=== PATIENT | female | born 1940 | race Caucasian/White ===

== ENCOUNTER 2016-09-30 15:59 | Inpatient (IN) | payer BC, MEDICARE ==
--- NOTE | ~2016-09-30 | HP ---
History And Physical [address] [place] [address] NAME: GRACIELA MEYERS : 44 STATUS : ADM Gerri PAT#: [id number] AGE: 76 ADM/REG DATE : 09/30/16 MR#: [id number] REPORT SERV DATE: 10/01/16 DICTATED BY: RELL FIELDS DATE: 09/30/16 REPORT STATUS : Draft TRANSCRIBED BY: MODL DATE: 09/30/16 DATE OF ADMISSION: 09/30/2016 POINT OF ENTRY: [facility] Emergency Department. CHIEF COMPLAINT: Shortness of breath and cough. HISTORY OF PRESENT ILLNESS: Ms. Meyers is a 76-year-old female with a history of COPD, not on home oxygen as well as hypertension and atrial fibrillation, not on anticoagulation, who presents to the emergency department today with acute onset of shortness of breath with nonproductive cough and wheezing. The patient states that for the past few days, she has had an upper respiratory tract infection with sinus congestion, drainage, as well as a sore throat, but she denies any fevers, night sweats, chills, cough, or shortness of breath. Upon awakening this morning, she noted a nonproductive cough, some wheezing, shortness of breath, and primarily her main complaint is dyspnea on exertion as she stated she was not able to even walk to the restroom without feeling significantly short of breath. She denies any chest pain, but does state that she does have some mild discomfort in between her shoulder blades, which does not feel "normal." Initial evaluation in the emergency department is notable for a chest x-ray that was clear. CT of the chest is negative. She was noted to be mildly hypoxemic on room air requiring 2 L by nasal cannula. Labs were otherwise unremarkable. EKG as well as troponin are negative. She was given steroids and bronchodilators with improvement in her symptoms, but still somewhat mildly hypoxemic. Therefore, she was admitted to the Hospitalist Service for further evaluation and management. COMPREHENSIVE SYSTEM OF REVIEW: Otherwise negative unless listed in the history of present illness. PREVIOUS MEDICAL HISTORY: 1. COPD, not on home oxygen. 2. Atrial fibrillation, not on anticoagulation. 3. Sick sinus syndrome, status post pacemaker insertion. 4. Hypertension. SURGICAL HISTORY: 1. Bilateral total knee. 2. Tubal ligation. ALLERGIES: NO KNOWN DRUG ALLERGIES. HOME MEDICATIONS: 1. Aspirin 81 mg daily. 2. Benazepril 40 mg b.i.d. History And Physical [address] [address] NAME: GRACIELA MEYERS : 44 STATUS : ADM Gerri PAT#: [id number] AGE: 76 ADM/REG DATE : 09/30/16 MR#: [id number] REPORT SERV DATE: 10/01/16 DICTATED BY: RELL FIELDS DATE: 09/30/16 REPORT STATUS : Draft TRANSCRIBED BY: JEANNIE DATE: 09/30/16 3. Ibuprofen 400 mg b.i.d. 4. Indapamide 1.25 mg daily. 5. Combivent inhaler five times p.r.n. 6. Magnesium oxide 400 mg b.i.d. 7. Potassium chloride 30 mEq daily. 8. Rythmol 225 mg b.i.d. SOCIAL HISTORY: Denies any tobacco, alcohol, or illicits. Actually only smoked for about two years when she was younger, but has extensive secondhand smoking exposure secondary to her . Denies alcohol. Denies illicits. FAMILY MEDICAL HISTORY: Mother with history of stroke. Father's history is unknown. Siblings with history of coronary artery disease and prostate cancer. LABS AND IMAGIN. White count 10.0, hemoglobin is 12.9, hematocrit is 38.5, platelet count is 194. INR 1.1. 2. Sodium is 141, potassium 3.4, chloride 108, carbon dioxide 29, BUN 12, creatinine 0.83, glucose is 105, calcium is 9.0, magnesium is 2.1. 3. BNP is 92.7, troponin less than 0.02. 4. ABG; pH is 7.41, pCO2 is 39, PO2 is 57, bicarb is 24, saturating 90% on room air. 5. Chest x-ray per my review shows no acute cardiopulmonary abnormality. Does show some mild hyperinflation. 6. CT of the chest is negative for PE or pneumonia. 7. EKG per my review shows normal sinus rhythm without evidence of any acute ischemia or infarction. PHYSICAL EXAMINATION: VITAL SIGNS: Temperature is afebrile, pulse 78, respirations 22, saturating 97% on 2 L by nasal cannula, blood pressure is 143/88. GENERAL: The patient is awake, alert, in no acute distress. Resting comfortably. She is a well-developed, well-nourished elderly female. HEENT: Atraumatic, normocephalic. Moist mucous membranes. Pupils were equal, round, reactive to light and accommodation. Extraocular eye movements are intact. No scleral icterus. NECK: No jugular venous distention. No carotid bruits. CARDIAC: Regular rate and rhythm. No murmurs, rubs, or gallops. Normal S1, S2. LUNGS: On oxygen, but in no respiratory distress. Does have some decreased breath sounds at the bases as well as prolonged inspiratory phase, but I do not appreciate any wheezes, rhonchi, or crackles at this time. ABDOMEN: Soft, nontender, nondistended. Good bowel sounds. No rebound, guarding, or rigidity. EXTREMITIES: Warm and well perfused. No cyanosis, clubbing, or edema. SKIN: Warm and dry. PSYCH: Affect appropriate. NEURO: Alert and oriented x3. Cranial nerves 2 through 12 grossly intact. Speech is normal. Gait not assessed. History And Physical [address] [address] NAME: GRACIELA MEYERS : 44 STATUS : ADM Gerri PAT#: [id number] AGE: 76 ADM/REG DATE : 09/30/16 MR#: [id number] REPORT SERV DATE: 10/01/16 DICTATED BY: RELL FIELDS DATE: 09/30/16 REPORT STATUS : Draft TRANSCRIBED BY: JEANNIE DATE: 09/30/16 ASSESSMENT AND PLAN: Ms. Meyers is a 76-year-old female with history of chronic obstructive pulmonary disease, who presents with a one-day history of shortness of breath, cough, and wheezing, found to have evidence of acute chronic obstructive pulmonary disease exacerbation. PROBLEM LIST: 1. Acute COPD exacerbation. 2. Mild hypoxemia. 3. Dyspnea on exertion. PLAN: 1. Acute COPD exacerbation. We will treat with bronchodilators, antibiotics, as well as steroids. 2. Mild hypoxemia likely secondary to acute COPD exacerbation. She does not have any evidence of volume overload and CT of the chest was negative for PE. We will continue to reevaluate as we treat her COPD. 3. Dyspnea on exertion likely secondary to acute COPD exacerbation. Chest x-ray is clear. There does not appear to be any evidence of pneumonia or volume overload. She recently had an echocardiogram as well as a stress test within the last 12 months that was unremarkable. Therefore, we will hold off on further reevaluation. 4. DVT prophylaxis. Lovenox subcu. CODE STATUS: The patient wished to be full code. JCB/MODL Rell Fields MD / [id number] CC: Rogelio Ceballos M.D.
--- NOTE | ~2016-09-30 | DS ---
Discharge Summary [address] [place]. [address] NAME: GRACIELA CASTRO : 44 STATUS : DIS Gerri PAT#: [id number] AGE: 76 ADM/REG DATE : 09/30/16 MR#: [id number] REPORT SERV DATE: 10/02/16 DICTATED BY: CHAGO MICHEL DATE: 10/02/16 REPORT STATUS : Draft TRANSCRIBED BY: MODL DATE: 10/02/16 ADMISSION DATE: 09/30/2016 DISCHARGE DATE: 10/02/2016 DIAGNOSES ON ADMISSION: 1. Acute chronic obstructive pulmonary disease exacerbation. 2. Mild hypoxemia. 3. Dyspnea. DIAGNOSES ON DISCHARGE: 1. Acute chronic obstructive pulmonary disease exacerbation, resolved. 2. Dyspnea on exertion, improved. 3. Mild hypoxemia, resolved. 4. Bronchitis/upper respiratory infection, improved. 5. History of short episode of atrial fibrillation, currently in normal sinus rhythm. 6. History of pacemaker placement in the past. 7. History of moderate chronic obstructive pulmonary disease per pulmonary function testing done in 2014. IMAGING STUDIES: 09/30/2016, CTA of the chest, no pulmonary emboli, atelectasis in the right middle lobe and at the lung bases, no significant lung infiltrates, no lung masses, no adenopathy. Echocardiography done on 10/01/2016 showed normal left ventricular size with preserved ejection fraction of 55% to 60%, mild diastolic dysfunction, normal right ventricular size and systolic function, no significant valvular disease, estimated pulmonary artery pressures at the upper limits of normal. Chest x-ray, PA and lateral, done on admission, no acute cardiopulmonary process. HISTORY OF PRESENT ILLNESS: Briefly, this is a very pleasant 76-year-old female, who was admitted by my colleague, Dr. Ortiz for shortness of breath and cough. She said that she got a sore throat and then she developed severe sinus congestion and cough as well as some dyspnea. For details, see history of present illness dictated by Dr. Ortiz on 09/30/2016. HOSPITAL COURSE: Briefly, the patient was admitted to the hospital. She was started on steroids as well as antibiotic Levaquin. She was afebrile. She had a normal EKG on admission as well as normal heart enzymes. Her cardiac telemetry strip showed normal sinus rhythm, and her breathing had improved. Next day, she was feeling better, although she had some cough with nonproductive sputum, but she was feeling better. She underwent an echocardiogram, which did not show any abnormality, except a slightly higher pulmonary artery pressures which could be related to her COPD. As I dictated above, she had pulmonary function testing done on 08/29/2014, which showed that she has moderate obstructive pulmonary disease, and she was prescribed albuterol and she was also recommended to continue tapering steroids as well as to complete her antibiotic. The patient's oxygen saturation was checked, on ambulation was 94% to 95% on room air and 95% on room air at rest without oxygen, so she did not require oxygen. She is doing well today. Her dyspnea has improved and resolved. She was recommended to take prednisone at 40 mg daily for two days, then 30 Discharge Summary [address] [address] NAME: GRACIELA CASTRO : 44 STATUS : DIS Gerri PAT#: [id number] AGE: 76 ADM/REG DATE : 09/30/16 MR#: [id number] REPORT SERV DATE: 10/02/16 DICTATED BY: CHAGO MICHEL DATE: 10/02/16 REPORT STATUS : Draft TRANSCRIBED BY: JEANNIE DATE: 10/02/16 mg daily for two days, then 20 mg daily for two days, then to stop; Levaquin 750 mg p.o. daily for five days; Florastor one pill p.o. b.i.d. Also for her atelectasis, she needed to continue to do incentive spirometry, a spirometer was provided, and she also needed to take Mucinex 600 mg p.o. b.i.d. The rest of the medication, she will continue her aspirin 81 mg daily, Lotensin 40 mg daily, magnesium oxide 400 p.o. b.i.d., potassium chloride 30 mEq daily, Rythmol 225 mg p.o. b.i.d., Combivent one puff inhaled p.r.n. for shortness of breath q.6 hours p.r.n., indapamide 1.25 p.o. daily. The patient was recommended to avoid nonsteroidal anti-inflammatories and to avoid ibuprofen. The patient to follow up with Dr. Pcae in a week. Dr. Pace to refer the patient to cargo service supervisor outpatient, as well as she was recommended to follow up with Dr. Sesay, jukebox operator, as needed. The patient was discharged in stable condition. I recommended her to stay from work for a weeks, a note was given to come back to work on 10/10, next Monday. I spent 45 minutes on discharge. The patient was discharged in stable condition. MG/MODL Chago Michel M.D. / [id number] CC: Rogelio Ceballos M.D. David Wendt, M.D.
[2016-09-30 14:17] LABS: BASOPHILS 0.1 %; BASOPHILS ABSOLUTE 0.01 10/3/uL (0.0-0.16); ER CBC TAT 0 Hrs 13 Mins; HEMATOCRIT 38.5 % (36.0-48.0); HEMOGLOBIN 12.9 g/dL (12.0-16.0); IMMATURE GRANULOCYTES 0.3 %; IMMATURE GRANULOCYTES ABSOLUTE 0.03 10/3/uL (0.0-0.11); LYMPHOCYTES 4.3 %; LYMPHOCYTES ABSOLUTE 0.43 10/3/uL (0.67-4.30); MANUAL DIFF NO %; MEAN CORPUS HGB CONC 33.5 g/dL (32.0-36.0); MEAN CORPUSCULAR VOLUME 86.5 fL (80-100); MEAN PLATELET VOLUME 10.4 fL (9.2-13.0); MONOCYTES 7.2 %; MONOCYTES ABSOLUTE 0.72 10/3/uL (0.21-1.20); NEUTROPHILS 84.1 %; NEUTROPHILS ABSOLUTE 8.36 10/3/uL (2.02-8.40); PLATELET COUNT 194 10/3/uL (150-400); RBC DISTRIBUTION WIDTH 13.4 % (12.0-16.0); RED CELL COUNT 4.45 10/6/uL (4.0-5.6)
[2016-09-30 14:20] LABS: INTERNATIONAL NORMAL RATI 1.1 UNITS (-)
[2016-09-30 14:25] LABS: PROTIME (NOT ORD) 14.2 SEC (12.0-14.5)
[2016-09-30 14:30] LABS: CHEST PAIN PROFILE TAT 0 Hrs 26 Mins; CHLORIDE, SERUM 108 MMOL/L (96-112); CO2 (CARBON DIOXIDE) 29 MMOL/L (24-34); CREATININE 0.83 MG/DL (0.55-1.02); GFR AFRICAN AMERICAN 81 ML/MIN (>=60); GFR NON AFRICAN AMERICAN 69 ML/MIN (>=60); GLUCOSE, SERUM 105 MG/DL (60-99); POTASSIUM, SERUM 3.4 MMOL/L (3.5-5.3); SODIUM, SERUM 141 MMOL/L (135-148); TROPONIN I <0.02 NG/ML (<0.05)
[2016-09-30 14:31] LABS: BUN (BLOOD UREA NITROGEN) 12 MG/DL (6-23)
[~2016-09-30 15:59] MED LIST: ADVIL PO; ASAB PO; COREG6 PO; INDAPAMIDE1.25 MG PO; KLOR-CON M1010 MEQ PO; LOTE40 PO; MAGOX4 PO; TAMBOCOR PO; ULTRAM50 PO
[2016-09-30] MEDS ORDERED: MAGOX4 PO (16:07)
[2016-09-30] MEDS ORDERED: INDAPAMIDE1.25 MG PO (16:07)
[2016-09-30] MEDS ORDERED: MAGNEBIND (16:07)
[2016-09-30] MEDS ORDERED: ADVIL PO (16:08)
[2016-09-30] MEDS ORDERED: ASAB PO (16:08)
[2016-09-30] MEDS ORDERED: RYTHMOL SR225 MG PO (16:08)
[2016-09-30] MEDS ORDERED: LOTE40 PO (16:09)
[2016-09-30] MEDS ORDERED: KLOR-CON 1010 MEQ PO (16:09)
[2016-09-30] MEDS ORDERED: COMBIVENT RESPIM4 GM INH (16:10)
[2016-09-30 16:22] LABS: ALLENS TEST Pos; BE (BASE EXCESS) -0.4 MEQ/L (0 +/- 2.5); CARBOXYHEMOGLOBIN 1.5 % (0-3); HEMOBLOGIN CONTENT 13.7 G/DL (12-16); INSTRUMENT SERIAL # 8087; METHEMOGLOBIN 0.2 % (0-3); O2 CONTENT 17.1 VOL% (18-24); OPERATOR ID 14335; PCO2 (CO2 TENSION) 39 MMHG (35-45); PO2 (O2 TENSION) 57 MMHG (79-93); SAMPLE Arterial; pH 7.41 (7.37-7.43)
[2016-10-01 05:07] LABS: BASOPHILS 0.1 %; BASOPHILS ABSOLUTE 0.01 10/3/uL (0.0-0.16); EOSINOPHILS 0 %; HEMATOCRIT 36.2 % (36.0-48.0); HEMOGLOBIN 12.2 g/dL (12.0-16.0); IMMATURE GRANULOCYTES 0.6 %; IMMATURE GRANULOCYTES ABSOLUTE 0.04 10/3/uL (0.0-0.11); LYMPHOCYTES 5.7 %; LYMPHOCYTES ABSOLUTE 0.39 10/3/uL (0.67-4.30); MEAN CORPUS HGB CONC 33.7 g/dL (32.0-36.0); MEAN CORPUSCULAR HEMOGLOB 29.2 pg (26.0-34.0); MEAN CORPUSCULAR VOLUME 86.6 fL (80-100); MEAN PLATELET VOLUME 10.7 fL (9.2-13.0); MONOCYTES 0.4 %; MONOCYTES ABSOLUTE 0.03 10/3/uL (0.21-1.20); NEUTROPHILS 93.2 %; NEUTROPHILS ABSOLUTE 6.39 10/3/uL (2.02-8.40); PLATELET COUNT 198 10/3/uL (150-400); RBC DISTRIBUTION WIDTH 13.3 % (12.0-16.0); RED CELL COUNT 4.18 10/6/uL (4.0-5.6); WHITE BLOOD CELLS 6.9 10/3/uL (4.5-10.5)
[2016-10-01 05:10] LABS: MANUAL DIFF NO %
[2016-10-01 05:16] LABS: BUN (BLOOD UREA NITROGEN) 14 MG/DL (6-23); CHLORIDE, SERUM 106 MMOL/L (96-112); CO2 (CARBON DIOXIDE) 27 MMOL/L (24-34); CREATININE 0.85 MG/DL (0.55-1.02); GFR AFRICAN AMERICAN 78 ML/MIN (>=60); GFR NON AFRICAN AMERICAN 67 ML/MIN (>=60); POTASSIUM, SERUM 3.8 MMOL/L (3.5-5.3); SODIUM, SERUM 142 MMOL/L (135-148)
[2016-10-01 05:18] LABS: GLUCOSE, SERUM 165 MG/DL (60-99)
[2016-10-02 06:19] LABS: CHLORIDE, SERUM 108 MMOL/L (96-112); CO2 (CARBON DIOXIDE) 27 MMOL/L (24-34); CREATININE 0.93 MG/DL (0.55-1.02); GFR AFRICAN AMERICAN 70 ML/MIN (>=60); GFR NON AFRICAN AMERICAN 61 ML/MIN (>=60); POTASSIUM, SERUM 4.1 MMOL/L (3.5-5.3); SODIUM, SERUM 141 MMOL/L (135-148)
[2016-10-02 06:27] LABS: BUN (BLOOD UREA NITROGEN) 25 MG/DL (6-23); GLUCOSE, SERUM 120 MG/DL (60-99)
[2016-10-02] MEDS ORDERED: PROAIR HFA (10:57)
[2016-10-02] MEDS ORDERED: LEVAQUIN750 MG PO (10:59)
[2016-10-02] MEDS ORDERED: STERAPRED DS10 MG PO (10:59)
[2016-10-02] MEDS ORDERED: MUCINEX600 MG PO (11:00)
[2016-10-02] MEDS ORDERED: FLORASTOR250 MG PO (11:01)
== END 2016-10-02 12:09 | disposition home or self-care (01) | DRG 192 ==
LOC: ER 15:59 → 5NO 19:12
PROVIDERS: Emergency Medicine; Hospitalist; Internal Medicine; Nurse Practitioner
DX: J44.1 Chronic obstructive pulmonary disease with (acute) exacerbation (principal); I49.5 Sick sinus syndrome; I48.91 Unspecified atrial fibrillation; Z95.0 Presence of cardiac pacemaker; I10 Essential (primary) hypertension; Z96.653 Presence of artificial knee joint, bilateral; Z79.82 Long term (current) use of aspirin; Z79.899 Other long term (current) drug therapy; Z87.891 Personal history of nicotine dependence; Z77.22 Contact with and (suspected) exposure to environmental tobacco smoke (acute) (chronic); Z82.3 Family history of stroke; Z82.49 Family history of ischemic heart disease and other diseases of the circulatory system; Z80.42 Family history of malignant neoplasm of prostate
CPT/HCPCS: 36600; 71020; 71275; 80048; 82805; 83735; 83880; 84484; 85025; 85610; 85730; 87040; 93005; 93288; 93306; 94640; 96365; 96375; 99285; A9270-GY; J1956; J2405; J2930; Q9967